=== PATIENT | male | born 1995 | race Hispanic/Latino ===

== ENCOUNTER 2021-06-21 10:55 | Emergency (ER) | payer SELFPAY ==
[2021-06-21] MEDS ORDERED: MORPHINE 4 MG/1 ML INJ IM ONE (11:43)
[2021-06-21] MEDS ORDERED: ONDANSETRON 4 MG/2 ML INJ IV ONE (11:43)
--- NOTE | 2021-06-21 11:51 | Emergency Department Report ---
ED Back Pain/Injury HPI - General Chief Complaint: Back Pain/Injury Stated Complaint: BACK PAIN Time Seen by Provider: 06/21/21 11:29 Source: patient Limitations: No Limitations - History of Present Illness Initial Comments: Patient is 26 years old male with history of previous back injury with degenerative disc disease according to the patient report. He stated that he had an accident he was 15 years old. Patient presented to the ER complaining of severe lower back pain that started all of a sudden after he lifted a dresser. Patient stated that symptoms started this morning. Patient describes his pain as sharp, 10 out of 10 radiated to his right leg. Patient denied any weakness, numbness or tingling sensation. No bowel or bladder incontinence. He denied any fever or chills. No recent lost weight. MD Complaint: back pain, back injury -: This morning Radiation: right leg Severity: severe Severity scale (0 -10): 8 Quality: sharp Consistency: intermittent Improves With: immobilization Worsens With: movement Context: while lifting Associated Symptoms: denies other symptoms - Related Data Previous Rx's Medication Instructions Recorded Last Taken Type Ondansetron [Zofran Odt] 4 mg PO Q8HR PRN #14 tab.rapdis 06/21/21 Unknown Rx Prednisone [predniSONE 10 mg 10 mg PO .TAPER #1 tab.ds.pk 06/21/21 Unknown Rx (6-Day Pack, 21 Tabs)] traMADoL [Ultram 50 MG tab] 50 mg PO Q4HR PRN #14 tablet 06/21/21 Unknown Rx Allergies Allergy/AdvReac Type Severity Reaction Status Date / Time No Known Allergies Allergy Verified 06/21/21 11:44 ED Review of Systems ROS: Stated complaint: BACK PAIN Other details as noted in HPI Comment: All other systems reviewed and negative Constitutional: denies: chills, fever Respiratory: denies: cough, shortness of breath, SOB with exertion, SOB at rest Cardiovascular: denies: chest pain, palpitations Gastrointestinal: denies: abdominal pain, nausea, vomiting Musculoskeletal: back pain Neurological: denies: headache, weakness, numbness, paresthesias, confusion, abnormal gait ED Past Medical Hx - Past Medical History Previous Medical History?: No - Surgical History Past Surgical History?: No - Medications Home Medications: Home Medications Medication Instructions Recorded Confirmed Last Taken Type Ondansetron [Zofran Odt] 4 mg PO Q8HR PRN #14 tab.rapdis 06/21/21 Unknown Rx Prednisone [predniSONE 10 mg 10 mg PO .TAPER #1 tab.ds.pk 06/21/21 Unknown Rx (6-Day Pack, 21 Tabs)] traMADoL [Ultram 50 MG tab] 50 mg PO Q4HR PRN #14 tablet 06/21/21 Unknown Rx ED Physical Exam - General Limitations: No Limitations General appearance: alert, in distress - Head Head exam: Present: atraumatic, normocephalic, normal inspection - Eye Eye exam: Present: normal appearance - ENT ENT exam: Present: normal exam, normal orophraynx, mucous membranes moist - Neck Neck exam: Present: normal inspection, full ROM. Absent: tenderness, meningismus - Respiratory Respiratory exam: Present: normal lung sounds bilaterally - Cardiovascular Cardiovascular Exam: Present: regular rate, normal rhythm, normal heart sounds - GI/Abdominal GI/Abdominal exam: Present: soft, normal bowel sounds. Absent: distended, tenderness, guarding, rebound, rigid, organomegaly, mass, bruit, pulsatile mass, hernia - Extremities Exam Extremities exam: Present: normal inspection, full ROM, normal capillary refill. Absent: tenderness, pedal edema, joint swelling, calf tenderness - Back Exam Back exam: Present: normal inspection, full ROM, muscle spasm. Absent: CVA tenderness (R), CVA tenderness (L), paraspinal tenderness, vertebral tenderness - Neurological Exam Neurological exam: Present: alert, oriented X3, CN II-XII intact, normal gait. Absent: motor sensory deficit - Psychiatric Psychiatric exam: Present: normal mood - Skin Skin exam: Present: warm, intact, normal color ED Course Vital Signs 06/21/21 06/21/21 06/21/21 11:27 11:50 12:25 Temperature 98.4 F Pulse Rate 72 Respiratory 18 18 20 Rate Blood Pressure Blood Pressure 134/90 [Left] O2 Sat by Pulse 100 Oximetry 06/21/21 06/21/21 14:11 15:22 Temperature 98.5 F 98.0 F Pulse Rate 83 64 Respiratory 20 20 Rate Blood Pressure 127/77 Blood Pressure 140/82 [Left] O2 Sat by Pulse 99 98 Oximetry ED Medical Decision Making - Radiology Data Radiology results: report reviewed - Medical Decision Making Patient is 26 years old male with history of previous back injury with degenerative disc disease according to the patient report. He stated that he had an accident he was 15 years old. Patient presented to the ER complaining of severe lower back pain that started all of a sudden after he lifted a dresser. Patient stated that symptoms started this morning. Patient describes his pain as sharp, 10 out of 10 radiated to his right leg. Patient denied any weakness, numbness or tingling sensation. No bowel or bladder incontinence. He denied any fever or chills. No recent lost weight. Patient received morphine, Dilaudid and Zofran. Patient also received Decadron 8 mg. X-ray of the lumbar sacral spine is negative for acute finding. CT lumbar spine showed L4-L5 bulging disc. Patient still denying any lower extremity weakness, numbness or tingling sensation. No bowel bladder incontinence. Patient strongly advised to follow-up with his primary care p filiberto in the next 2 to 3 days and to return to the ER if he develop any new symptoms. I also gave him a referral to neurosurgery [facility]. Critical care attestation.: If time is entered above; I have spent that time in minutes in the direct care of this critically ill patient, excluding procedure time. ED Disposition Clinical Impression: Acute back pain, Lumbar disc herniation with radiculopathy Disposition: 01 HOME / SELF CARE / HOMELESS Is pt being admited?: No Condition: Stable Instructions: Acute Back Pain, Adult, Back Injury Prevention, [id number] Prescriptions: Prednisone [predniSONE 10 mg (6-Day Pack, 21 Tabs)] 10 mg PO .TAPER #1 tab.ds.pk traMADoL [Ultram 50 MG tab] 50 mg PO Q4HR PRN #14 tablet PRN Reason: Pain Ondansetron [Zofran Odt] 4 mg PO Q8HR PRN #14 tab.rapdis PRN Reason: Nausea And Vomiting Referrals: PRIMARY CARE, [Primary Care Provider] - 3-5 Days ZAC LINO II, MD [Staff Physician] - 3-5 Days
[2021-06-21] MEDS ORDERED: HYDROmorphone 1 MG/1 ML INJ IV ONE ×2 (12:15→14:21)
--- NOTE | 2021-06-21 12:38 | XRay Report ---
LUMBAR SPINE 3 VIEWS INDICATION / CLINICAL INFORMATION: BACK INJURY. COMPARISON: None available. FINDINGS: VERTEBRAE: No acute fracture. No significant malalignment. Along the superior endplate of L5 there is a well-corticated ossific fragment, likely a limbus vertebrae. DISC SPACES / FACET JOINTS:No significant abnormality. PARASPINAL SOFT TISSUES:No significant abnormality. ADDITIONAL FINDINGS: None. Signer Name: Tyron Acosta DO Signed: 06/21/2021 12:34 PM Workstation Name: [id number]
[2021-06-21] MEDS ORDERED: dexAMETHasone 4 MG/ML VIAL IV ONE (14:17)
--- NOTE | 2021-06-21 17:11 | Cat Scan Report ---
CT LUMBAR SPINE: 06/21/2021 INDICATION / CLINICAL INFORMATION: ACUTE BACK PAIN AND INJURY. COMPARISON: None available. FINDINGS: CT images of the lumbar spine were obtained. Images are evaluated in the axial, coronal, and sagittal planes. There is no evidence of acute abnormality. Vertebral body height and alignment is well preserved. There is some mild diffuse disc bulging associated with degenerative endplate irregularity at the L4- 5 level. There is no evidence of stenosis or nerve root compression. At L5-S1, there is a right paracentral and lateral disc protrusion, with impingement upon the right l ateral recess and neural foramen. PARASPINAL STRUCTURES: Unremarkable. IMPRESSION: No acute abnormality. Degenerative changes including right-sided disc herniation at L5-S1. All CT scans at this location are performed using dose reduction to ALARA by means of automated expos ure control. Signer Name: Dada Jung MD Signed: 06/21/2021 5:07 PM Workstation Name: [id number]
[2021-06-21 17:47] VITALS: BP 135/89
== END 2021-06-21 17:48 | disposition home or self-care (01) ==
LOC: ED 10:55
DX: M54.50 Low back pain, unspecified (principal); M51.16 Intervertebral disc disorders with radiculopathy, lumbar region
CPT/HCPCS: 72100; 72131; 96374; 96375; 96376; 99284; J1100; J1170; J2270; J2405